=== PATIENT | female | born 1940 | race African-American/Black ===

== ENCOUNTER 2018-07-02 07:58 | Emergency (ER) | payer MEDICARE, MEDICAID ==
[~2018-07-02] VITALS: Ht 160 cm; Wt 85.0 kg
[~2018-07-02 07:58] MED LIST: ASA5EC PO; ATOR20TA PO; BENA40TA66 PO; CLON0.1T PO
[2018-07-02] MEDS ORDERED: KETOROLAC 15MG/ML VIAL IM ONE (09:00)
[2018-07-02] MEDS ORDERED: ALBUTEROL (0.083%) 2.5MG/3ML NEB HHN STA (09:26)
[2018-07-02] MEDS ORDERED: MORPHINE SULFATE 10 MG/ML CPJ IM ONE (11:00)
[2018-07-02 11:16] VITALS: BP 145/109
== END 2018-07-02 12:40 | disposition home or self-care (01) ==
LOC: ER 07:58
DX: M54.41 Lumbago with sciatica, right side (principal); E11.9 Type 2 diabetes mellitus without complications; I10 Essential (primary) hypertension; I25.10 Atherosclerotic heart disease of native coronary artery without angina pectoris; Z79.82 Long term (current) use of aspirin; Z88.0 Allergy status to penicillin; Z86.73 Personal history of transient ischemic attack (TIA), and cerebral infarction without residual deficits; Z95.0 Presence of cardiac pacemaker
CPT/HCPCS: 72100; 94640; 96372; 99284; J1885; J2270; J7611

== ENCOUNTER 2018-07-03 02:30 | Emergency (ER) | payer MEDICARE, MEDICAID ==
[~2018-07-03] VITALS: Ht 167.6 cm; Wt 82.0 kg
[2018-07-03] MEDS ORDERED: TRAMADOL 50MG TABLET PO ONE (07:00)
[2018-07-03] MEDS ORDERED: KETOROLAC 60MG/2ML VIAL IM ONE (09:00)
[2018-07-03 10:09] VITALS: BP 136/89
== END 2018-07-03 10:15 | disposition home or self-care (01) ==
LOC: ER 02:30
DX: M54.41 Lumbago with sciatica, right side (principal)
CPT/HCPCS: 93970; 96372; 99284; J1885

== ENCOUNTER 2018-08-03 14:25 | Inpatient (IN) | payer MEDICARE, MEDICAID ==
[~2018-08-03] VITALS: Ht 165.1 cm; Wt 72.6 kg
[2018-08-03] MEDS ORDERED: ONDANSETRON HCL 4MG/2ML INJ IV STA (15:42)
[2018-08-03] MEDS ORDERED: SODIUM CHLORIDE 0.9% 1,000 ML IV ONE (15:42)
[2018-08-03] MEDS ORDERED: MORPHINE SULFATE 4 MG/ML CPJ (NOT FOR IM USE) IV STA (15:42)
[2018-08-03 16:40] LABS: CHLORIDE 101 mEq/L (98-107)
[2018-08-03 16:43] LABS: INR 1.4; PARTIAL THROMBOPLASTIN TIME 21.6 sec (23.4-31.0)
[2018-08-03 17:49] LABS: BASOPHILS % 0.5 % (0.0-2.0); EOSINOPHILS % 0.9 % (0.0-5.0); HEMATOCRIT. 40.1 % (36.0-48.0); HEMOGLOBIN. 12.9 g/dL (12.0-16.0); LYMPHOCYTES % 32.4 % (20.0-50.0); MEAN CORPUSCULAR HEMOGLOBIN 27.5 pg (28.0-32.0); MEAN CORPUSCULAR VOLUME 85.3 fL (81.0-99.0); MEAN PLATELET VOLUME 9.4 fl (7.4-10.4); MONOCYTES % 9.6 % (2.0-8.0); NEUTROPHILS % 56.6 % (40.0-76.0); PLATELET 250 x1000/uL (130-400); RED BLOOD CELL COUNT 4.71 mill/uL (4.2-5.4); RED CELL DISTRIBUTION WIDTH 14.4 % (11.6-14.6)
[2018-08-03 19:22] LABS: CLARITY URINE CLEAR (CLEAR); COLOR URINE YELLOW (YELLOW); KETONES URINE NEGATIVE (NEGATIVE); LEUKOCYTE ESTERASE URINE 1+ (NEGATIVE); NITRITE URINE NEGATIVE (NEGATIVE); OCCULT BLOOD URINE NEGATIVE (NEGATIVE); PROTEIN URINE 2+ (NEGATIVE); SPECIFIC GRAVITY URINE 1.015 (1.005-1.030)
[2018-08-03] MEDS ORDERED: ACETAMINOPHEN 325MG TABLET PO PRN (20:15)
[2018-08-03] MEDS ORDERED: MAGNESIUM/ALUMINUM HYDROXIDE/SIMETHICONE 30ML UDC PO PRN (20:15)
[2018-08-03] MEDS ORDERED: ACETAMINOPHEN 650MG SUPP PR PRN (20:15)
[2018-08-03] MEDS ORDERED: ASPIRIN 81MG TABLET PO ONE (20:15)
[2018-08-03] MEDS ORDERED: ACETAMINOPHEN 650MG/20.3ML UDC GT PRN (20:15)
[2018-08-03] MEDS ORDERED: DEXTROSE 50% WATER 50ML SYRINGE IV PRN (20:15)
[2018-08-03] MEDS ORDERED: CLONIDINE 0.1MG TABLET PO PRN (20:15)
[2018-08-03] MEDS ORDERED: MORPHINE SULFATE 4 MG/ML CPJ (NOT FOR IM USE) IV ONE (20:15)
[2018-08-03] MEDS ORDERED: IPRATROPIUM/ALBUTEROL 0.5-3(2.5)MG/3ML NEB INH PRN (20:15)
[2018-08-03] MEDS ORDERED: ONDANSETRON HCL 4MG/2ML INJ IV PRN (20:15)
[2018-08-03] MEDS ORDERED: DIPHENHYDRAMINE 50MG/ML VIAL IV PRN (20:15)
[2018-08-04] VITALS (8 sets, daily range): BP systolic 116–146; BP diastolic 64–93
[2018-08-04 00:28] LABS: CREATINE KINASE 99 IU/L (26-192); CREATINE KINASE MB FRACTION < 1.0 ng/mL (0.5-3.6)
[2018-08-04] MEDS ORDERED: NA PHOS,M-B/NA PHOS,DI-BA ENEMA 118ML PR PRN (00:54)
[2018-08-04] MEDS: HYDROCODONE/ACETAMINOPHEN 5/325MG TABLET PO PRN ×3 (01:56→14:59)
[2018-08-04] MEDS: IPRATROPIUM/ALBUTEROL 0.5-3(2.5)MG/3ML NEB INH SCH ×4 (02:12→19:56)
[2018-08-04] MEDS: SODIUM CHLORIDE 0.45% 1,000 ML IV SCH ×3 (02:56→21:57)
[2018-08-04] MEDS: SODIUM CHLORIDE 0.9% INJ 3ML FLUSH IVF SCH ×3 (05:01→21:56)
[2018-08-04] MEDS: BLOOD SUGAR DIAGNOSTIC STRIP TEST SCH ×3 (06:49→20:37)
[2018-08-04] MEDS ORDERED: KETOROLAC 15MG/ML VIAL IV SCH (07:00)
[2018-08-04 07:32] LABS: BASOPHILS % 0.8 % (0.0-2.0); EOSINOPHILS % 1.4 % (0.0-5.0); HEMATOCRIT. 37.2 % (36.0-48.0); LYMPHOCYTES % 33.3 % (20.0-50.0); MEAN CORPUSCULAR HEMOGLOBIN 27.5 pg (28.0-32.0); MEAN CORPUSCULAR VOLUME 85.7 fL (81.0-99.0); MEAN PLATELET VOLUME 9.6 fl (7.4-10.4); MONOCYTES % 9.8 % (2.0-8.0); NEUTROPHILS % 54.7 % (40.0-76.0); PLATELET 189 x1000/uL (130-400); RED BLOOD CELL COUNT 4.35 mill/uL (4.2-5.4); RED CELL DISTRIBUTION WIDTH 14.5 % (11.6-14.6)
[2018-08-04 07:49] LABS: CLARITY URINE CLOUDY (CLEAR); COLOR URINE AMBER (YELLOW); KETONES URINE NEGATIVE (NEGATIVE); LEUKOCYTE ESTERASE URINE 2+ (NEGATIVE); NITRITE URINE NEGATIVE (NEGATIVE); OCCULT BLOOD URINE NEGATIVE (NEGATIVE); PROTEIN URINE 2+ (NEGATIVE); SPECIFIC GRAVITY URINE 1.022 (1.005-1.030)
[2018-08-04 07:59] LABS: CHLORIDE 103 mEq/L (98-107)
[2018-08-04] MEDS ORDERED: KETOROLAC 30MG/ML VIAL IV ONE (08:00)
[2018-08-04 08:18] LABS: CREATINE KINASE 82 IU/L (26-192); LDL CHOLESTEROL 92 mg/dL (5-100)
[2018-08-04 08:19] LABS: HDL CHOLESTEROL 34 mg/dL (40-59)
[2018-08-04] MEDS: PANTOPRAZOLE SODIUM 40 MG/VIAL IV SCH (08:47)
[2018-08-04] MEDS: ENOXAPARIN 40MG/0.4ML SYR SUBCUT SCH (08:47)
[2018-08-04] MEDS: INSULIN LISPRO 100 UNITS/ML SUBCUT SCH ×4 (09:04→20:37)
[2018-08-04 09:38] LABS: *AMPHETAMINES SCREEN URINE NEGATIVE (NEGATIVE); *BARBITURATES SCREEN URINE NEGATIVE (NEGATIVE); *BENZODIAZEPINES SCREEN URINE NEGATIVE (NEGATIVE); *COCAINE SCREEN URINE NEGATIVE (NEGATIVE); METHADONE URINE SCREEN NEGATIVE (NEGATIVE); OPIATES URINE SCREEN PRESUMTIVE POSITIVE (NEGATIVE)
[2018-08-04 09:39] LABS: CANNABINOID URINE SCREEN NEGATIVE (NEGATIVE); PHENCYCLIDINE URINE SCREEN NEGATIVE (NEGATIVE)
[2018-08-04 10:33] LABS: T4 FREE 1.31 ng/dL (0.76-1.46)
[2018-08-04] MEDS: MORPHINE SULFATE 4 MG/ML CPJ (NOT FOR IM USE) IV PRN (22:09)
[2018-08-05 00:50] VITALS: BP 149/75
[2018-08-05] MEDS: IPRATROPIUM/ALBUTEROL 0.5-3(2.5)MG/3ML NEB INH SCH (01:41)
[2018-08-05] MEDS: HYDROCODONE/ACETAMINOPHEN 5/325MG TABLET PO PRN ×2 (03:39→14:18)
[2018-08-05 04:00] VITALS: BP 166/84
[2018-08-05] MEDS: SODIUM CHLORIDE 0.9% INJ 3ML FLUSH IVF SCH ×2 (06:04→14:00)
[2018-08-05] MEDS: BLOOD SUGAR DIAGNOSTIC STRIP TEST SCH ×2 (07:20→12:06)
[2018-08-05] MEDS: INSULIN LISPRO 100 UNITS/ML SUBCUT SCH ×2 (07:50→12:06)
[2018-08-05 08:00] VITALS: BP 148/80
[2018-08-05] MEDS: ENOXAPARIN 40MG/0.4ML SYR SUBCUT SCH (08:32)
[2018-08-05] MEDS: PANTOPRAZOLE SODIUM 40 MG/VIAL IV SCH (08:32)
[2018-08-05] MEDS: MORPHINE SULFATE 4 MG/ML CPJ (NOT FOR IM USE) IV PRN (10:24)
[2018-08-05 12:00] VITALS: BP 141/72
[2018-08-05] MEDS: SODIUM CHLORIDE 0.45% 1,000 ML IV SCH (12:01)
[2018-08-05 14:10] VITALS: BP 138/70
[2018-08-05 14:18] VITALS: BP 139/70
[2018-08-06] MEDS ORDERED: COR3 MT (12:54)
== END 2018-08-05 15:51 | disposition home health service (06) | DRG 202 ==
LOC: ER 14:38 → 6WST 20:04 → ENRESERV 23:47
PROVIDERS: ADMIT Family Medicine; ATTEND Family Medicine
DX: J45.901 Unspecified asthma with (acute) exacerbation (principal); I42.9 Cardiomyopathy, unspecified; E11.9 Type 2 diabetes mellitus without complications; E78.5 Hyperlipidemia, unspecified; Z86.73 Personal history of transient ischemic attack (TIA), and cerebral infarction without residual deficits; M54.30 Sciatica, unspecified side; F03.90 Unspecified dementia, unspecified severity, without behavioral disturbance, psychotic disturbance, mood disturbance, and anxiety; G89.29 Other chronic pain; I10 Essential (primary) hypertension; K57.90 Diverticulosis of intestine, part unspecified, without perforation or abscess without bleeding; I25.10 Atherosclerotic heart disease of native coronary artery without angina pectoris; I25.2 Old myocardial infarction; Z82.49 Family history of ischemic heart disease and other diseases of the circulatory system; Z90.710 Acquired absence of both cervix and uterus; Z88.0 Allergy status to penicillin; Z95.0 Presence of cardiac pacemaker
CPT/HCPCS: 36415; 71045; 74176; 80061; 80305; 82550; 82553; 82962; 83036; 83880; 84439; 84443; 84484; 85379; 87804; 93005; 93306; 93970; 97162; 99285; C9113; J1650; J1815; J1885; J2270; J2405; J7030; J7620

== ENCOUNTER 2018-08-07 19:40 | Inpatient (IN) | payer MEDICARE, MEDICAID ==
[~2018-08-07] VITALS: Ht 162.6 cm; Wt 75.3 kg
[~2018-08-07 19:40] MED LIST changes: +COR3 MT
[2018-08-07 21:44] LABS: BASOPHILS % 0.6 % (0.0-2.0); EOSINOPHILS % 2.9 % (0.0-5.0); HEMATOCRIT. 39.3 % (36.0-48.0); HEMOGLOBIN. 12.4 g/dL (12.0-16.0); LYMPHOCYTES % 31.8 % (20.0-50.0); MEAN CORPUSCULAR HEMOGLOBIN 27.4 pg (28.0-32.0); MEAN CORPUSCULAR VOLUME 86.3 fL (81.0-99.0); MEAN PLATELET VOLUME 9.2 fl (7.4-10.4); NEUTROPHILS % 53.7 % (40.0-76.0); PLATELET 257 x1000/uL (130-400); RED BLOOD CELL COUNT 4.55 mill/uL (4.2-5.4); RED CELL DISTRIBUTION WIDTH 14.4 % (11.6-14.6)
[2018-08-07] MEDS ORDERED: MAGNESIUM/ALUMINUM HYDROXIDE/SIMETHICONE 30ML UDC PO PRN (21:45)
[2018-08-07] MEDS ORDERED: ONDANSETRON HCL 4MG/2ML INJ IV PRN (21:45)
[2018-08-07] MEDS ORDERED: IPRATROPIUM/ALBUTEROL 0.5-3(2.5)MG/3ML NEB INH PRN (21:45)
[2018-08-07] MEDS ORDERED: ACETAMINOPHEN 325MG TABLET PO PRN (21:45)
[2018-08-07] MEDS ORDERED: CLONIDINE 0.1MG TABLET PO PRN (21:45)
[2018-08-07 21:47] LABS: CHLORIDE 103 mEq/L (98-107)
[2018-08-07 21:56] LABS: BETA HYDROXYBUTYRATE 0.4 mMol/L (0.0-0.3)
[2018-08-07] MEDS ORDERED: MAGNESIUM OXIDE 400MG TABLET PO ONE (22:15)
[2018-08-07 22:16] LABS: CREATINE KINASE MB FRACTION 1.4 ng/mL (0.5-3.6)
[2018-08-07] MEDS ORDERED: MAGNESIUM 1 G PREMIX 100 ML IV ONE (22:30)
[2018-08-07 23:14] LABS: HEPATITIS B SURFACE ANTIGEN NEGATIVE
[2018-08-07 23:44] LABS: HEPATITIS A AB IGM NEGATIVE (NEGATIVE)
[2018-08-08 00:50] VITALS: BP 161/90
[2018-08-08 01:00] VITALS: BP 161/90
[2018-08-08] MEDS: HYDROCODONE/ACETAMINOPHEN 5/325MG TABLET PO PRN ×3 (02:10→20:57)
[2018-08-08 08:00] VITALS: BP 115/71
[2018-08-08] MEDS: ASPIRIN 81MG EC TABLET PO SCH (09:07)
[2018-08-08] MEDS: ENOXAPARIN 40MG/0.4ML SYR SUBCUT SCH (09:07)
[2018-08-08] MEDS ORDERED: BENAZEPRIL 5MG TABLET PO SCH (10:30)
[2018-08-08] MEDS: CARVEDILOL 3.125 MG TABLET PO SCH ×2 (11:10→20:57)
[2018-08-08 12:00] VITALS: BP 121/63
[2018-08-08] MEDS ORDERED: MAGNESIUM 2 G PREMIX 50 ML IV SCH (15:00)
[2018-08-08 16:00] VITALS: BP 122/71
[2018-08-08] MEDS ORDERED: FUROSEMIDE 20MG/2ML VIAL IVP ONE (16:15)
[2018-08-08] MEDS: FUROSEMIDE 20MG/2ML VIAL IVP SCH (16:34)
[2018-08-08] MEDS: POTASSIUM CHLORIDE 10MEQ TABLET SR PO SCH (16:35)
[2018-08-08 18:50] LABS: CLARITY URINE CLEAR (CLEAR); COLOR URINE YELLOW (YELLOW); KETONES URINE NEGATIVE (NEGATIVE); LEUKOCYTE ESTERASE URINE NEGATIVE (NEGATIVE); NITRITE URINE NEGATIVE (NEGATIVE); OCCULT BLOOD URINE NEGATIVE (NEGATIVE); PH URINE 6.5 (4.5-8.0); PROTEIN URINE NEGATIVE (NEGATIVE); SPECIFIC GRAVITY URINE 1.004 (1.005-1.030)
[2018-08-08 19:10] LABS: *AMPHETAMINES SCREEN URINE NEGATIVE (NEGATIVE); *BARBITURATES SCREEN URINE NEGATIVE (NEGATIVE); *COCAINE SCREEN URINE NEGATIVE (NEGATIVE)
[2018-08-08 19:11] LABS: CANNABINOID URINE SCREEN NEGATIVE (NEGATIVE); METHADONE URINE SCREEN NEGATIVE (NEGATIVE); OPIATES URINE SCREEN PRESUMTIVE POSITIVE (NEGATIVE); PHENCYCLIDINE URINE SCREEN NEGATIVE (NEGATIVE)
[2018-08-08 19:14] LABS: *BENZODIAZEPINES SCREEN URINE NEGATIVE (NEGATIVE)
[2018-08-08 20:00] VITALS: BP 104/58
[2018-08-08] MEDS ORDERED: DEXTROSE 50% WATER 50ML SYRINGE IV PRN (20:15)
[2018-08-08] MEDS: ATORVASTATIN CALCIUM 20MG TABLET PO SCH (20:56)
[2018-08-08] MEDS: INSULIN LISPRO 100 UNITS/ML SUBCUT SCH (20:58)
[2018-08-08] MEDS: BLOOD SUGAR DIAGNOSTIC STRIP TEST SCH (20:58)
[2018-08-09] VITALS: BP 104/58
[2018-08-09] MEDS: HYDROCODONE/ACETAMINOPHEN 5/325MG TABLET PO PRN ×5 (02:39→19:50)
[2018-08-09 04:00] VITALS: BP 101/66
[2018-08-09] MEDS: BLOOD SUGAR DIAGNOSTIC STRIP TEST SCH ×4 (06:23→21:48)
[2018-08-09] MEDS: INSULIN LISPRO 100 UNITS/ML SUBCUT SCH ×4 (06:23→21:00)
[2018-08-09 08:00] VITALS: BP 111/60
[2018-08-09] MEDS: POTASSIUM CHLORIDE 10MEQ TABLET SR PO SCH (10:54)
[2018-08-09] MEDS: FUROSEMIDE 20MG/2ML VIAL IVP SCH ×2 (10:54→11:22)
[2018-08-09] MEDS: ASPIRIN 81MG EC TABLET PO SCH (10:54)
[2018-08-09] MEDS: ENOXAPARIN 40MG/0.4ML SYR SUBCUT SCH (10:55)
[2018-08-09] MEDS: CARVEDILOL 6.25 MG TABLET PO SCH ×2 (11:00→21:48)
[2018-08-09 12:00] VITALS: BP 141/76
[2018-08-09] MEDS: FUROSEMIDE 40MG TABLET PO SCH (12:49)
[2018-08-09 14:24] LABS: BG BASE EXCESS 3.2 mmol/L (-2.0-2.0); BG CARBOXYHEMOGLOBIN 0.2 % (0.5-1.5); BG DEOXYHEMOGLOBIN 2.8 % (0.0-5.0); BG FRACTION INSPIRED OXYGEN 21; BG HCO3 ACT 27.2 mmol/L (22.0-26.0); BG METHEMOGLOBIN 0.2 % (0.0-1.5); BG OXYGEN SATURATION 97.2 % (92.0-98.5); BG OXYHEMOGLOBIN 96.8 % (94.0-97.0); BG PCO2 39.5 mmHg (35.0-45.0); BG PH 7.456 (7.350-7.450); BG PO2 96.9 mmHg (75.0-100.0); BG SAMPLE SITE LEFT RADIAL; BG TOTAL HEMOGLOBIN 12.9 g/dL (12.0-18.0); BG VENT MODE ROOM AIR
[2018-08-09 15:29] LABS: BASOPHILS % 0.9 % (0.0-2.0); CHLORIDE 103 mEq/L (98-107); EOSINOPHILS % 4.2 % (0.0-5.0); HEMATOCRIT. 38.5 % (36.0-48.0); HEMOGLOBIN. 12.2 g/dL (12.0-16.0); MEAN CORPUSCULAR HEMOGLOBIN 27.4 pg (28.0-32.0); MEAN CORPUSCULAR VOLUME 86.5 fL (81.0-99.0); MEAN PLATELET VOLUME 9.1 fl (7.4-10.4); MONOCYTES % 14.2 % (2.0-8.0); NEUTROPHILS % 44.7 % (40.0-76.0); PLATELET 249 x1000/uL (130-400); RED BLOOD CELL COUNT 4.45 mill/uL (4.2-5.4); RED CELL DISTRIBUTION WIDTH 15.1 % (11.6-14.6)
[2018-08-09 15:37] LABS: HDL CHOLESTEROL 27 mg/dL (40-59); LDL CHOLESTEROL 86 mg/dL (5-100)
[2018-08-09 15:38] LABS: CREATINE KINASE 126 IU/L (26-192)
[2018-08-09 15:41] LABS: CREATINE KINASE MB FRACTION 1.4 ng/mL (0.5-3.6)
[2018-08-09 16:00] VITALS: BP 121/56
[2018-08-09 20:00] VITALS: BP 136/70
[2018-08-09] MEDS ORDERED: CARVEDILOL 6.25 MG TABLET PO SCH (21:00)
[2018-08-09] MEDS: BENAZEPRIL 5MG TABLET PO SCH (21:48)
[2018-08-09] MEDS: ATORVASTATIN CALCIUM 20MG TABLET PO SCH (21:48)
[2018-08-10] VITALS: BP 143/77
[2018-08-10] MEDS: HYDROCODONE/ACETAMINOPHEN 5/325MG TABLET PO PRN ×5 (00:05→20:40)
[2018-08-10 04:00] VITALS: BP 138/80
[2018-08-10] MEDS: INSULIN LISPRO 100 UNITS/ML SUBCUT SCH ×4 (07:06→20:20)
[2018-08-10] MEDS: BLOOD SUGAR DIAGNOSTIC STRIP TEST SCH ×4 (07:06→20:20)
[2018-08-10 08:00] VITALS: BP 155/83
[2018-08-10] MEDS: POTASSIUM CHLORIDE 10MEQ TABLET SR PO SCH (08:31)
[2018-08-10] MEDS: CARVEDILOL 6.25 MG TABLET PO SCH (08:31)
[2018-08-10] MEDS: ASPIRIN 81MG EC TABLET PO SCH (08:31)
[2018-08-10] MEDS: FUROSEMIDE 40MG TABLET PO SCH (08:31)
[2018-08-10] MEDS: BENAZEPRIL 5MG TABLET PO SCH (08:32)
[2018-08-10] MEDS: ENOXAPARIN 40MG/0.4ML SYR SUBCUT SCH (08:33)
[2018-08-10 10:26] LABS: EOSINOPHILS % 4.5 % (0.0-5.0); HEMATOCRIT. 38.2 % (36.0-48.0); HEMOGLOBIN. 12.2 g/dL (12.0-16.0); LYMPHOCYTES % 40.4 % (20.0-50.0); MEAN CORPUSCULAR HEMOGLOBIN 27.6 pg (28.0-32.0); MEAN CORPUSCULAR VOLUME 86.3 fL (81.0-99.0); MEAN PLATELET VOLUME 8.8 fl (7.4-10.4); MONOCYTES % 14.1 % (2.0-8.0); PLATELET 254 x1000/uL (130-400); RED BLOOD CELL COUNT 4.43 mill/uL (4.2-5.4); RED CELL DISTRIBUTION WIDTH 14.9 % (11.6-14.6)
[2018-08-10 10:35] LABS: CHLORIDE 100 mEq/L (98-107)
[2018-08-10 12:00] VITALS: BP 125/56
[2018-08-10 16:00] VITALS: BP_SYST 132; BP_SYST 136; BP_DIAS 72
[2018-08-10 20:00] VITALS: BP 145/73
[2018-08-10] MEDS: BENAZEPRIL 10MG TABLET PO SCH (20:30)
[2018-08-10] MEDS: ATORVASTATIN CALCIUM 20MG TABLET PO SCH (20:30)
[2018-08-10] MEDS: CARVEDILOL 12.5MG TABLET PO SCH (20:31)
[2018-08-11] VITALS: BP 157/77
[2018-08-11] MEDS: HYDROCODONE/ACETAMINOPHEN 5/325MG TABLET PO PRN ×5 (00:52→20:55)
[2018-08-11 04:00] VITALS: BP 142/74
[2018-08-11] MEDS: BLOOD SUGAR DIAGNOSTIC STRIP TEST SCH ×4 (06:12→20:43)
[2018-08-11] MEDS: INSULIN LISPRO 100 UNITS/ML SUBCUT SCH ×4 (06:12→21:05)
[2018-08-11 08:00] VITALS: BP 146/79
[2018-08-11] MEDS: CARVEDILOL 12.5MG TABLET PO SCH ×2 (08:31→20:39)
[2018-08-11] MEDS: BENAZEPRIL 10MG TABLET PO SCH ×2 (08:31→20:39)
[2018-08-11] MEDS: ASPIRIN 81MG EC TABLET PO SCH (08:31)
[2018-08-11] MEDS: FUROSEMIDE 40MG TABLET PO SCH (08:31)
[2018-08-11] MEDS: POTASSIUM CHLORIDE 10MEQ TABLET SR PO SCH (08:31)
[2018-08-11] MEDS: ENOXAPARIN 40MG/0.4ML SYR SUBCUT SCH (08:32)
[2018-08-11 09:28] LABS: EOSINOPHILS % 4.8 % (0.0-5.0); HEMATOCRIT. 39.1 % (36.0-48.0); HEMOGLOBIN. 12.4 g/dL (12.0-16.0); LYMPHOCYTES % 41.1 % (20.0-50.0); MEAN CORPUSCULAR HEMOGLOBIN 27.3 pg (28.0-32.0); MEAN CORPUSCULAR VOLUME 86.4 fL (81.0-99.0); MEAN PLATELET VOLUME 8.4 fl (7.4-10.4); MONOCYTES % 13.5 % (2.0-8.0); NEUTROPHILS % 39.6 % (40.0-76.0); PLATELET 285 x1000/uL (130-400); RED BLOOD CELL COUNT 4.53 mill/uL (4.2-5.4)
[2018-08-11 09:37] LABS: CHLORIDE 98 mEq/L (98-107)
[2018-08-11 12:00] VITALS: BP 123/74
[2018-08-11 16:00] VITALS: BP 127/75
[2018-08-11 16:54] LABS: BG BASE EXCESS 7.6 mmol/L (-2.0-2.0); BG CARBOXYHEMOGLOBIN 0.9 % (0.5-1.5); BG DEOXYHEMOGLOBIN 5.5 % (0.0-5.0); BG FRACTION INSPIRED OXYGEN 21; BG METHEMOGLOBIN 0.4 % (0.0-1.5); BG OXYGEN SATURATION 94.4 % (92.0-98.5); BG OXYHEMOGLOBIN 93.2 % (94.0-97.0); BG PCO2 49.3 mmHg (35.0-45.0); BG PH 7.443 (7.350-7.450); BG SAMPLE SITE LEFT BRACHIAL; BG TOTAL HEMOGLOBIN 12.7 g/dL (12.0-18.0); BG VENT MODE ROOM AIR
[2018-08-11 20:00] VITALS: BP 125/74
[2018-08-11] MEDS: ATORVASTATIN CALCIUM 20MG TABLET PO SCH (20:39)
[2018-08-12] VITALS: BP 114/54
[2018-08-12] MEDS: HYDROCODONE/ACETAMINOPHEN 5/325MG TABLET PO PRN ×4 (01:30→15:13)
[2018-08-12 04:00] VITALS: BP 154/81
[2018-08-12] MEDS: INSULIN LISPRO 100 UNITS/ML SUBCUT SCH ×3 (06:25→17:43)
[2018-08-12] MEDS: BLOOD SUGAR DIAGNOSTIC STRIP TEST SCH ×3 (06:25→17:43)
[2018-08-12 08:00] VITALS: BP 142/76
[2018-08-12] MEDS: FUROSEMIDE 40MG TABLET PO SCH (09:10)
[2018-08-12] MEDS: BENAZEPRIL 10MG TABLET PO SCH (09:11)
[2018-08-12] MEDS: ASPIRIN 81MG EC TABLET PO SCH (09:11)
[2018-08-12] MEDS: POTASSIUM CHLORIDE 10MEQ TABLET SR PO SCH (09:11)
[2018-08-12] MEDS: CARVEDILOL 12.5MG TABLET PO SCH (09:11)
[2018-08-12] MEDS: ENOXAPARIN 40MG/0.4ML SYR SUBCUT SCH (09:12)
[2018-08-12 12:00] VITALS: BP 136/65
[2018-08-12] MEDS ORDERED: KDUR10 PO (14:59)
[2018-08-12] MEDS ORDERED: FURO40TA5 PO (14:59)
[2018-08-12] MEDS ORDERED: METF-414 MT (14:59)
[2018-08-12] MEDS ORDERED: ASPI-1158 PO (14:59)
[2018-08-12] MEDS ORDERED: COR25 PO (14:59)
[2018-08-12] MEDS ORDERED: LOT10 PO (14:59)
[2018-08-12 16:00] VITALS: BP 132/74
[2018-08-12 16:22] VITALS: BP 142/76
[2018-08-12] MEDS ORDERED: CARVEDILOL 25MG TABLET PO SCH (21:00)
== END 2018-08-12 18:23 | disposition home or self-care (01) | DRG 291 ==
LOC: ER 19:40 → 5WST 21:19 → EDBEDREQ 21:21 → ENRESERV 21:41
PROVIDERS: ADMIT Internal Medicine; ATTEND Internal Medicine
DX: I11.0 Hypertensive heart disease with heart failure (principal); J96.00 Acute respiratory failure, unspecified whether with hypoxia or hypercapnia; G93.40 Encephalopathy, unspecified; F11.20 Opioid dependence, uncomplicated; I50.43 Acute on chronic combined systolic (congestive) and diastolic (congestive) heart failure; I42.9 Cardiomyopathy, unspecified; E66.9 Obesity, unspecified; R74.0 Nonspecific elevation of levels of transaminase and lactic acid dehydrogenase [LDH]; R16.0 Hepatomegaly, not elsewhere classified; E78.5 Hyperlipidemia, unspecified; E11.9 Type 2 diabetes mellitus without complications; E83.42 Hypomagnesemia; F03.90 Unspecified dementia, unspecified severity, without behavioral disturbance, psychotic disturbance, mood disturbance, and anxiety; E78.00 Pure hypercholesterolemia, unspecified; H91.90 Unspecified hearing loss, unspecified ear; I07.1 Rheumatic tricuspid insufficiency; J44.9 Chronic obstructive pulmonary disease, unspecified; K21.9 Gastro-esophageal reflux disease without esophagitis; Z79.82 Long term (current) use of aspirin; Z86.73 Personal history of transient ischemic attack (TIA), and cerebral infarction without residual deficits; Z88.0 Allergy status to penicillin; Z90.710 Acquired absence of both cervix and uterus; Z95.0 Presence of cardiac pacemaker
CPT/HCPCS: 36415; 36600; 71045; 76705; 78582; 80048; 80061; 80305; 82010; 82140; 82375; 82550; 82553; 82693; 82805; 82962; 83605; 83735; 83880; 84443; 84484; 85379; 86705; 86709; 86803; 87340; 93005; 96365; 97110; 97162; 97166; 99285; A9558; J1650; J1815; J1940; J3475; J7050

== ENCOUNTER 2018-12-17 12:53 | Emergency (ER) | payer MEDICARE, MEDICAID ==
[~2018-12-17] VITALS: Ht 167.6 cm; Wt 96.0 kg
[~2018-12-17 12:53] MED LIST changes: -ASA5EC PO; +ASPI-1158 PO; -BENA40TA66 PO; -CLON0.1T PO; +COR25 PO; -COR3 MT; +FURO40TA5 PO; +KDUR10 PO; +LOT10 PO; +METF-414 MT
[2018-12-17 14:33] LABS: BASOPHILS % 0.5 % (0.0-2.0); EOSINOPHILS % 3.1 % (0.0-5.0); HEMATOCRIT. 36.6 % (36.0-48.0); HEMOGLOBIN. 11.9 g/dL (12.0-16.0); LYMPHOCYTES % 27.8 % (20.0-50.0); MEAN CORPUSCULAR HEMOGLOBIN 27.4 pg (28.0-32.0); MEAN CORPUSCULAR VOLUME 84.2 fL (81.0-99.0); MONOCYTES % 12.9 % (2.0-8.0); NEUTROPHILS % 55.7 % (40.0-76.0); PLATELET 295 x1000/uL (130-400); RED BLOOD CELL COUNT 4.35 mill/uL (4.2-5.4); RED CELL DISTRIBUTION WIDTH 16.5 % (11.6-14.6)
[2018-12-17 14:34] LABS: CHLORIDE 108 mEq/L (98-107)
[2018-12-17 15:23] LABS: CLARITY URINE CLEAR (CLEAR); COLOR URINE YELLOW (YELLOW); KETONES URINE NEGATIVE (NEGATIVE); LEUKOCYTE ESTERASE URINE TRACE (NEGATIVE); NITRITE URINE NEGATIVE (NEGATIVE); OCCULT BLOOD URINE NEGATIVE (NEGATIVE); PROTEIN URINE 2+ (NEGATIVE); SPECIFIC GRAVITY URINE 1.015 (1.005-1.030)
[2018-12-17] MEDS ORDERED: KETOROLAC 60MG/2ML VIAL IM ONE (17:45)
[2018-12-17 18:27] VITALS: BP 143/87
== END 2018-12-17 18:30 | disposition home or self-care (01) ==
LOC: ER 12:54
DX: M79.605 Pain in left leg (principal); I11.0 Hypertensive heart disease with heart failure; I50.9 Heart failure, unspecified; E11.9 Type 2 diabetes mellitus without complications; K21.9 Gastro-esophageal reflux disease without esophagitis; E78.5 Hyperlipidemia, unspecified; Z86.73 Personal history of transient ischemic attack (TIA), and cerebral infarction without residual deficits; Z87.440 Personal history of urinary (tract) infections; Z95.0 Presence of cardiac pacemaker; Z88.0 Allergy status to penicillin; Z79.82 Long term (current) use of aspirin; Z79.899 Other long term (current) drug therapy
CPT/HCPCS: 36415; 80053; 81003; 83690; 85025; 93970; 96372; 99284; J1885

== ENCOUNTER 2020-02-05 14:07 | Inpatient (IN) | payer MEDICARE, MEDICAID ==
[~2020-02-05] VITALS: Ht 165.1 cm; Wt 75.3 kg
[~2020-02-05 14:07] MED LIST changes: +BENA10TA75 PO; -LOT10 PO
[2020-02-05] MEDS ORDERED: NITROGLYCERIN 50MG PREMIX 250 ML IV ONE (15:00)
[2020-02-05] MEDS ORDERED: FUROSEMIDE 40MG/4ML VIAL IVP ONE (15:00)
[2020-02-05] MEDS ORDERED: NITROGLYCERIN 0.4MG TABLET SL SL ONE ×2 (15:00→16:15)
[2020-02-05] MEDS ORDERED: LEVOFLOXACIN 500MG PREMIX 100 ML IV ONE (17:15)
[2020-02-05] MEDS ORDERED: MORPHINE SULFATE 4 MG/ML CPJ (NOT FOR IM USE) IV ONE (19:45)
[2020-02-05] MEDS ORDERED: ACETAMINOPHEN 325MG TABLET PO PRN (20:30)
[2020-02-05] MEDS ORDERED: LORAZEPAM 2MG/ML CPJ IV PRN (20:30)
[2020-02-05] MEDS ORDERED: IPRATROPIUM/ALBUTEROL 0.5-3(2.5)MG/3ML NEB NEB PRN (20:30)
[2020-02-05] MEDS ORDERED: CLONIDINE 0.1MG TABLET PO PRN (20:30)
[2020-02-05] MEDS ORDERED: ONDANSETRON HCL 4MG/2ML INJ IV PRN (20:30)
[2020-02-05] MEDS ORDERED: GUAIFENESIN 200MG/10ML SUGAR FREE UDC PO PRN (20:30)
[2020-02-05] MEDS ORDERED: HYDRALAZINE 20MG/ML VIAL IV PRN (20:30)
[2020-02-05] MEDS ORDERED: DIPHENHYDRAMINE 50MG/ML VIAL IV PRN (20:30)
[2020-02-05] MEDS ORDERED: DEXTROSE 50% WATER 50ML SYRINGE IV PRN (20:30)
[2020-02-05] MEDS ORDERED: MAGNESIUM/ALUMINUM HYDROXIDE/SIMETHICONE 30ML UDC PO PRN (20:30)
[2020-02-05] MEDS: INSULIN LISPRO 100 UNITS/ML SUBCUT SCH (21:00)
[2020-02-05] MEDS: BLOOD SUGAR DIAGNOSTIC STRIP TEST SCH (21:16)
[2020-02-05] MEDS: SODIUM CHLORIDE 0.9% INJ 3ML FLUSH IVF SCH (22:16)
[2020-02-05 23:50] LABS: CHLORIDE 103 mEq/L (98-107)
[2020-02-06] MEDS: MORPHINE SULFATE 2 MG/ML CPJ (NOT FOR IM USE) IV PRN ×2 (00:44→09:55)
[2020-02-06] MEDS: HYDROCODONE/ACETAMINOPHEN 10/325MG TABLET PO PRN (03:40)
[2020-02-06 04:42] LABS: BASOPHILS % 0.9 % (0.0-2.0); EOSINOPHILS % 3.6 % (0.0-5.0); HEMATOCRIT. 36.1 % (36.0-48.0); HEMOGLOBIN. 11.7 g/dL (12.0-16.0); LYMPHOCYTES % 33.5 % (20.0-50.0); MEAN CORPUSCULAR HEMOGLOBIN 27.1 pg (28.0-32.0); MEAN CORPUSCULAR VOLUME 83.7 fL (81.0-99.0); MEAN PLATELET VOLUME 9.2 fl (7.4-10.4); MONOCYTES % 8.2 % (2.0-8.0); NEUTROPHILS % 53.8 % (40.0-76.0); PLATELET 292 x1000/uL (130-400); RED BLOOD CELL COUNT 4.31 mill/uL (4.2-5.4); RED CELL DISTRIBUTION WIDTH 16.1 % (11.6-14.6)
[2020-02-06 04:45] LABS: CHLORIDE 104 mEq/L (98-107)
[2020-02-06] MEDS: SODIUM CHLORIDE 0.9% INJ 3ML FLUSH IVF SCH ×3 (05:48→22:42)
[2020-02-06] MEDS: BLOOD SUGAR DIAGNOSTIC STRIP TEST SCH ×4 (08:06→21:55)
[2020-02-06] MEDS: INSULIN LISPRO 100 UNITS/ML SUBCUT SCH ×4 (08:15→21:54)
[2020-02-06] MEDS: HYDRALAZINE HCL 50MG TABLET PO SCH ×2 (09:00→12:00)
[2020-02-06] MEDS: ENOXAPARIN 40MG/0.4ML SYR SUBCUT SCH (09:56)
[2020-02-06 13:02] LABS: T4 FREE 1.2 ng/dL (0.76-1.46)
[2020-02-06] MEDS: FUROSEMIDE 40MG/4ML VIAL IVP SCH (13:26)
[2020-02-06] MEDS: CARVEDILOL 3.125 MG TABLET PO SCH ×2 (13:30→21:57)
[2020-02-06] MEDS ORDERED: NITROGLYCERIN 50MG PREMIX 250 ML IV NR (17:03)
[2020-02-06] MEDS: LOSARTAN POTASSIUM 50 MG TABLET PO SCH (17:25)
[2020-02-06] MEDS ORDERED: LEVOFLOXACIN 500MG PREMIX 100 ML IV SCH (18:00)
[2020-02-07 00:03] LABS: CREATINE KINASE 178 IU/L (26-192)
[2020-02-07 00:04] LABS: CREATINE KINASE MB FRACTION 1.2 ng/mL (0.5-3.6)
[2020-02-07] MEDS: FUROSEMIDE 40MG/4ML VIAL IVP SCH ×3 (00:04→17:15)
[2020-02-07 05:03] LABS: CREATINE KINASE 219 IU/L (26-192)
[2020-02-07] MEDS: MORPHINE SULFATE 2 MG/ML CPJ (NOT FOR IM USE) IV PRN ×4 (05:54→20:42)
[2020-02-07] MEDS ORDERED: MORPHINE SULFATE 2 MG/ML CPJ (NOT FOR IM USE) IV ONE (05:56)
[2020-02-07 06:00] LABS: CREATINE KINASE MB FRACTION 1.2 ng/mL (0.5-3.6)
[2020-02-07] MEDS: SODIUM CHLORIDE 0.9% INJ 3ML FLUSH IVF SCH ×3 (06:54→22:40)
[2020-02-07] MEDS: BLOOD SUGAR DIAGNOSTIC STRIP TEST SCH ×5 (06:57→20:41)
[2020-02-07] MEDS: INSULIN LISPRO 100 UNITS/ML SUBCUT SCH ×5 (07:01→20:41)
[2020-02-07] MEDS ORDERED: INSULIN LISPRO 100 UNITS/ML SUBCUT ONE (07:05)
[2020-02-07] MEDS: LOSARTAN POTASSIUM 50 MG TABLET PO SCH (10:00)
[2020-02-07] MEDS: CARVEDILOL 3.125 MG TABLET PO SCH ×2 (10:00→20:09)
[2020-02-07] MEDS: ENOXAPARIN 40MG/0.4ML SYR SUBCUT SCH (10:00)
[2020-02-07] MEDS: HYDRALAZINE HCL 50MG TABLET PO SCH (17:00)
[2020-02-07] MEDS: HYDROCODONE/ACETAMINOPHEN 10/325MG TABLET PO PRN (19:00)
[2020-02-07 20:00] VITALS: BP 115/55
[2020-02-08] VITALS: BP 158/76
[2020-02-08] MEDS: MORPHINE SULFATE 2 MG/ML CPJ (NOT FOR IM USE) IV PRN ×4 (00:49→22:17)
[2020-02-08] MEDS: LEVOFLOXACIN 250MG PREMIX 50 ML IV SCH (00:49)
[2020-02-08 04:00] VITALS: BP 138/66
[2020-02-08] MEDS: BLOOD SUGAR DIAGNOSTIC STRIP TEST SCH ×4 (06:01→21:57)
[2020-02-08] MEDS: FUROSEMIDE 40MG/4ML VIAL IVP SCH ×2 (06:32→17:58)
[2020-02-08] MEDS: INSULIN LISPRO 100 UNITS/ML SUBCUT SCH ×4 (06:32→22:08)
[2020-02-08] MEDS: SODIUM CHLORIDE 0.9% INJ 3ML FLUSH IVF SCH ×3 (06:33→22:00)
[2020-02-08 07:43] LABS: HEMOGLOBIN. 12.5 g/dL (12.0-16.0); MEAN CORPUSCULAR HEMOGLOBIN 27.2 pg (28.0-32.0); MEAN CORPUSCULAR VOLUME 84.9 fL (81.0-99.0); MEAN PLATELET VOLUME 10.7 fl (7.4-10.4); PLATELET 256 x1000/uL (130-400); RED CELL DISTRIBUTION WIDTH 16.3 % (11.6-14.6)
[2020-02-08 08:00] VITALS: BP 137/77
[2020-02-08 08:12] LABS: PHOSPHORUS 4.3 mg/dL (2.5-4.9)
[2020-02-08] MEDS: CARVEDILOL 3.125 MG TABLET PO SCH ×2 (09:37→22:07)
[2020-02-08] MEDS: LOSARTAN POTASSIUM 50 MG TABLET PO SCH (09:37)
[2020-02-08] MEDS: ENOXAPARIN 40MG/0.4ML SYR SUBCUT SCH (09:38)
[2020-02-08] MEDS: HYDRALAZINE HCL 50MG TABLET PO SCH ×2 (09:38→17:58)
[2020-02-08 12:00] VITALS: BP 139/61
[2020-02-08] MEDS: DOCUSATE SODIUM 100MG CAPSULE PO PRN (13:55)
[2020-02-08 16:00] VITALS: BP 121/70
[2020-02-08 20:00] VITALS: BP 123/55
[2020-02-09] VITALS: BP 118/77
[2020-02-09] MEDS: LEVOFLOXACIN 250MG PREMIX 50 ML IV SCH (00:36)
[2020-02-09] MEDS: HYDROCODONE/ACETAMINOPHEN 10/325MG TABLET PO PRN ×3 (02:00→23:12)
[2020-02-09 04:00] VITALS: BP 141/82
[2020-02-09] MEDS: DOCUSATE SODIUM 100MG CAPSULE PO PRN (04:14)
[2020-02-09] MEDS: SODIUM CHLORIDE 0.9% INJ 3ML FLUSH IVF SCH ×3 (06:00→22:00)
[2020-02-09] MEDS: BLOOD SUGAR DIAGNOSTIC STRIP TEST SCH ×4 (06:19→20:38)
[2020-02-09] MEDS: FUROSEMIDE 40MG/4ML VIAL IVP SCH ×2 (06:34→16:52)
[2020-02-09] MEDS: INSULIN LISPRO 100 UNITS/ML SUBCUT SCH ×4 (06:34→21:12)
[2020-02-09 08:00] VITALS: BP 141/73
[2020-02-09] MEDS: LOSARTAN POTASSIUM 50 MG TABLET PO SCH (09:16)
[2020-02-09] MEDS: ENOXAPARIN 40MG/0.4ML SYR SUBCUT SCH (09:16)
[2020-02-09] MEDS: HYDRALAZINE HCL 50MG TABLET PO SCH ×2 (09:16→16:53)
[2020-02-09] MEDS: CARVEDILOL 3.125 MG TABLET PO SCH ×2 (09:17→20:15)
[2020-02-09 11:04] LABS: PLATELET ESTIMATE NORMAL
[2020-02-09 12:00] VITALS: BP 148/86
[2020-02-09] MEDS: MORPHINE SULFATE 2 MG/ML CPJ (NOT FOR IM USE) IV PRN ×2 (14:01→20:15)
[2020-02-09 16:00] VITALS: BP 152/70
[2020-02-09 20:00] VITALS: BP 132/76
[2020-02-10] VITALS (8 sets, daily range): BP systolic 107–164; BP diastolic 67–89
[2020-02-10] MEDS: MORPHINE SULFATE 2 MG/ML CPJ (NOT FOR IM USE) IV PRN ×5 (01:19→20:07)
[2020-02-10] MEDS: SODIUM CHLORIDE 0.9% INJ 3ML FLUSH IVF SCH ×2 (05:02→21:34)
[2020-02-10] MEDS: BLOOD SUGAR DIAGNOSTIC STRIP TEST SCH ×4 (06:18→21:32)
[2020-02-10] MEDS: FUROSEMIDE 40MG/4ML VIAL IVP SCH ×2 (06:29→17:40)
[2020-02-10] MEDS: INSULIN LISPRO 100 UNITS/ML SUBCUT SCH ×4 (06:30→21:00)
[2020-02-10] MEDS: CARVEDILOL 3.125 MG TABLET PO SCH ×2 (09:09→21:00)
[2020-02-10] MEDS: LOSARTAN POTASSIUM 50 MG TABLET PO SCH (09:09)
[2020-02-10] MEDS: ENOXAPARIN 40MG/0.4ML SYR SUBCUT SCH (09:09)
[2020-02-10] MEDS: HYDRALAZINE HCL 50MG TABLET PO SCH ×2 (09:15→17:40)
[2020-02-10] MEDS ORDERED: LEVOFLOXACIN 250MG TABLET PO SCH (11:00)
[2020-02-10] MEDS ORDERED: LOSARTAN POTASSIUM 50 MG TABLET PO SCH (21:00)
== END 2020-02-10 21:47 | disposition home health service (06) | DRG 291 ==
LOC: ER 14:19 → MICUSO 15:34 → 7WST 23:50 → MICUSO 02-06 00:12 → CVICU 02-07 07:34 → MICUSO 02-07 09:37 → 8WST 02-07 18:40
PROVIDERS: ADMIT Internal Medicine; ATTEND Internal Medicine
DX: I11.0 Hypertensive heart disease with heart failure (principal); J96.00 Acute respiratory failure, unspecified whether with hypoxia or hypercapnia; E46 Unspecified protein-calorie malnutrition; E87.1 Hypo-osmolality and hyponatremia; D72.819 Decreased white blood cell count, unspecified; I50.23 Acute on chronic systolic (congestive) heart failure; I42.9 Cardiomyopathy, unspecified; D64.9 Anemia, unspecified; E78.5 Hyperlipidemia, unspecified; E87.5 Hyperkalemia; I07.1 Rheumatic tricuspid insufficiency; I25.10 Atherosclerotic heart disease of native coronary artery without angina pectoris; M54.30 Sciatica, unspecified side; E11.51 Type 2 diabetes mellitus with diabetic peripheral angiopathy without gangrene; I27.20 Pulmonary hypertension, unspecified; K21.9 Gastro-esophageal reflux disease without esophagitis; E66.9 Obesity, unspecified; Z20.828 Contact with and (suspected) exposure to other viral communicable diseases; Z79.899 Other long term (current) drug therapy; Z86.73 Personal history of transient ischemic attack (TIA), and cerebral infarction without residual deficits; Z79.82 Long term (current) use of aspirin; Z88.0 Allergy status to penicillin; Z95.0 Presence of cardiac pacemaker; Z79.84 Long term (current) use of oral hypoglycemic drugs; Z87.440 Personal history of urinary (tract) infections; Z68.27 Body mass index [BMI] 27.0-27.9, adult
CPT/HCPCS: 36415; 71045; 80048; 80053; 80061; 82550; 82553; 82962; 83036; 83735; 83880; 84100; 84439; 84443; 84484; 85025; 85379; 93005; 93306; 93970; 96365; 97162; 99291; J0360; J1200; J1650; J1815; J1940; J1956; J2060; J2270; J3490; U0003-CS